=== PATIENT | female | born 1975 | race Caucasian/White ===

== ENCOUNTER 2021-01-01 21:31 | Emergency (ER) | payer BC, SELFPAY ==
[2021-01-01 21:45] VITALS: BMI 34.7
[2021-01-01 21:46] VITALS: BP 179/99; PULSE 82; RESP 22; TEMP 36.9; O2SAT 96; BMI 34.7
[2021-01-01 21:48] LABS: Microscopic, Urine URINE MICROSCOPIC (MICROSCOPIC)
--- NOTE | 2021-01-01 21:53 | CT_ITS ---
PROCEDURE INFORMATION: Exam: CT Abdomen And Pelvis With Contrast Exam date and time: 01/01/2021 9:53 PM Age: 45 years old Clinical indication: Abdominal pain; Localized; Left lower quadrant (llq); Prior surgery; Surgery date: 6+ months; Surgery type: Gallbladder; Patient HX: Llq pain in last few hours; Additional info: Left flank and llq pain TECHNIQUE: Imaging protocol: Computed tomography of the abdomen and pelvis with contrast. Radiation optimization: All CT scans at this facility use at least one of these dose optimization techniques: automated exposure control; mA and/or kV adjustment per patient size (includes targeted exams where dose is matched to clinical indication); or iterative reconstruction. Contrast material: ISOVUE; Contrast volume: 75 ml; Contrast route: IV; COMPARISON: No relevant prior studies available. FINDINGS: Liver: Normal. No mass. Gallbladder and bile ducts: There has been prior cholecystectomy. Pancreas: Normal. No ductal dilation. Spleen: Normal. No splenomegaly. Adrenal glands: Normal. No mass. Kidneys and ureters: There is a 4 mm calculus at the intramural portion of the left ureterovesical junction with associated proximal grade 3 hydronephrosis most consistent with left-sided obstructive uropathy. Stomach and bowel: Unremarkable. No obstruction. No mucosal thickening. Appendix: No evidence of appendicitis. Intraperitoneal space: Unremarkable. No free air. No significant fluid collection. Vasculature: Unremarkable. No abdominal aortic aneurysm. Lymph nodes: Unremarkable. No enlarged lymph nodes. Urinary bladder: Unremarkable as visualized. Reproductive: Unremarkable as visualized. Bones/joints: Unremarkable. No acute fracture. Soft tissues: Unremarkable. IMPRESSION: There is a 4 mm calculus at the intramural portion of the left ureterovesical junction with associated proximal grade 3 hydronephrosis most consistent with left-sided obstructive uropathy.
[2021-01-01 22:04] LABS: Appearance,Urine CLOUDY (Clear); Bilirubin,Urine Negative (Negative); Blood, Urine 2+ (Negative); Color,Urine YELLOW (Yellow); Glucose,Urine (UA) Negative (Negative); Ketones,Urine Negative (Negative); Leukocyte Esterase,Urine TRACE (Negative); Nitrate,Urine Negative (Negative); PH,Urine 5.5 (5.0-8.5); Protein,Urine Negative (Negative); Specific Gravity, Urine 1.025 (1.005-1.030); Urobilinogen,Urine 0.2 EU/dl (0.2)
[2021-01-01 22:06] LABS: Urine Pregnancy, HCG Qual. Negative (Negative)
[2021-01-01 22:08] LABS: Basophils # 0.1 K/mm3 (0-0.2); Basophils % 0.9 % (0.1-2.0); Eosinophils # 0.3 K/mm3 (0.0-0.4); Eosinophils % 3.3 % (0.1-12.0); Hematocrit 44.6 % (37.0-47.0); Lymphocytes # 2.4 K/mm3 (0.7-4.5); Lymphocytes % 25.5 % (10-50); Mean Corpuscular HGB Conc 33.7 g/dL (31.8-35.4); Mean Corpuscular Hemoglobin 29.5 pg (27.0-31.2); Mean Corpuscular Volume 87.7 fl (81-99); Mean Platelet Volume 7.5 fl (7.4-10.4); Monocytes # 0.5 K/mm3 (0.1-1.0); Monocytes % 5.2 % (1.7-9.3); Neutrophils # 6.1 K/mm3 (1.8-7.8); Neutrophils % 65.1 % (37.0-80.0); Platelet Count 216 K/mm3 (142-424); Red Blood Count 5.08 M/mm3 (4.20-5.40); Red Cell Distribution Width 12.6 % (11.5-17.5); White Blood Count 9.4 K/mm3 (4.8-10.8)
[2021-01-01 22:09] LABS: Alanine Aminotransferase 18 U/L (12-78); Albumin Level 4.3 g/dl (3.5-5.0); Albumin/Globulin Ratio 1.5 (1.1-1.8); Alkaline Phosphatase 82 U/L (38-126); Anion Gap 8.7 mEq/L (5-15); Aspartate Amino Transferase 26 U/L (14-36); Bilirubin,Total 0.5 mg/dl (0.2-1.3); Blood Urea Nitrogen 12 mg/dl (7-17); Calcium 9.1 mg/dl (8.4-10.2); Carbon Dioxide 24 mmol/L (22.0-30.0); Chloride 106 mmol/L (98-107); Creatinine Clearance Estimated 88 mL/min (50-200); Estimated Glomerular Filt Rate 54 ml/min (>60); GFR (African American) 65 ML/MIN (>60); Globulin 2.8 g/dL (1.3-3.2); Glucose 108 mg/dl (74-100); Lipase 163 U/L (23-300); Potassium 3.7 mmoL/L (3.5-5.1); Sodium 135 mmol/L (136-145); Total Protein,Serum 7.1 g/dl (6.3-8.2)
[2021-01-01 22:15] LABS: Bacteria,Urine 2+ /lpf
[2021-01-01 22:46] VITALS: BP 148/98; PULSE 78; RESP 16; O2SAT 96
[2021-01-01 23:00] VITALS: BP 145/91; PULSE 76; RESP 16; O2SAT 96
--- NOTE | 2021-01-01 23:52 | [facility].EDABDPAI ---
ED Disposition Clinical Impression: Renal lithiasis Disposition: Home, Self-Care Condition on Discharge: Good Instructions: DI for Acute Abdominal Pain Additional Instructions: Follow-up with urology as needed and return to the ED for any new or worsening symptoms including inability to urinate or fever. Prescriptions: Tamsulosin HCl [Flomax 0.4mg capsule] 0.4 mg PO HS 7 Days #7 cap Prescription Printed Referrals: Ace Nettles [Primary Care Provider] - Time of Disposition: 00:00 - Critical Care Critical Care Time: No Attestation: On 01/01/21, the high probability of a clinically significant, sudden or life threatening deterioration of the following system(s) required my full and direct attention, intervention and personal management. The time I documented below is in addition to time spent performing reported procedures but includes the following listed in this critical care notation. Medical Decision Making - Medical Records Medical records reviewed: Yes: I reviewed the patient's medical records. - Brandon Inquiry Pt receiving controlled substance: No Vital Signs: 01/01/21 21:46 01/01/21 22:46 01/01/21 23:00 Temperature 98.4 F Temperature Source Oral Pulse Rate 78 76 Pulse Rate [Right] 82 Respiratory Rate 22 16 16 Blood Pressure 148/98 H 145/91 H Blood Pressure [Right Arm] 179/99 H Blood Pressure Mean 112 109 Blood Pressure Mean [Right Arm] 125 Blood Pressure Source [Right Arm] Automatic Cuff Blood Pressure Position [Right Arm] Sitting 02 Sat by Pulse Oximetry 96 96 96 Oxygen Delivery Method Room Air Room Air Room Air - Lab Data Lab Results 01/01/21 21:40: Urine Color Yellow, Urine Appearance Cloudy, Urine pH 5.5, Ur Specific [place] 1.025, Urine Protein Negative, Urine Glucose (UA) Negative, Urine Ketones Negative, Urine Blood 2+, Urine Nitrate Negative, Urine Bilirubin Negative, Urine Urobilinogen 0.2, Ur Leukocyte Esterase Trace, Urine RBC 10-20, Urine WBC 10-20, Ur Squamous Epith Cells 10-20, Urine Bacteria 2+ 01/01/21 21:40: Urine HCG, Qual Negative 01/01/21 21:45: WBC 9.4, RBC 5.08, Hgb 15.0, Hct 44.6, MCV 87.7, MCH 29.5, MCHC 33.7, RDW 12.6, Plt Count 216, MPV 7.5, Neut % (Auto) 65.1, Lymph % (Auto) 25.5, [place] % (Auto) 5.2, Eos % (Auto) 3.3, Baso % (Auto) 0.9, Neut # (Auto) 6.1, Lymph # (Auto) 2.4, [place] # (Auto) 0.5, Eos # (Auto) 0.3, Baso # (Auto) 0.1 01/01/21 21:45: Sodium 135 L, Potassium 3.7, Chloride 106, Carbon Dioxide 24, Anion Gap 8.7, BUN 12, Creatinine 1.10 H, Estimated Creat Clear 88, Estimated GFR 54 L, Est GFR ( Amer) 65, Glucose 108 H, Calcium 9.1, Total Bilirubin 0.5, AST 26, ALT 18, Alkaline Phosphatase 82, Total Protein 7.1, Albumin 4.3, Globulin 2.8, Albumin/Globulin Ratio 1.5, Lipase 163 Result diagrams: 01/01/21 21:45 01/01/21 21:45 Orders (Tests/Meds): ED MEDICATIONS Discontinued Medications Generic Name Dose Route Start Last Admin Trade Name Freq PRN Reason Stop Dose Admin Belladonna Alkaloids 60 ml 01/01/21 21:55 01/01/21 22:08 Gi Cocktail 60ml Udc PO 01/01/21 21:56 60 ml ONCE ONE Administration Iopamidol 75 ml 01/01/21 22:37 01/01/21 22:38 Iopamidol-370 (76%);100ml Bottle IV 01/01/21 22:38 75 ml ONCE ONE Administration Ketorolac Tromethamine 15 mg 01/01/21 21:54 01/01/21 22:08 Ketorolac 30mg/Ml Vial IV 01/01/21 21:55 15 mg ONCE ONE Administration Morphine Sulfate 4 mg 01/01/21 21:54 01/01/21 22:08 Morphine 4mg/Ml Syringe IV 01/01/21 21:55 4 mg ONCE ONE Administration Ondansetron HCl 4 mg 01/01/21 22:12 01/01/21 22:12 Ondansetron 4mg/2ml Vial IV 01/01/21 22:13 4 mg ONCE ONE Administration Sodium Chloride 10 ml 01/01/21 22:37 01/01/21 22:38 Sodium Chloride 0.9% 10ml Syr (Rad Only) IV 01/01/21 22:38 10 ml ONCE ONE Administration ORDERS Category Date Time Status Urine Culture Stat Micro 01/01/21 21:40 Received - CT Data CT Scan: Abdomen
[2021-01-02 00:02] VITALS: BP 141/82; PULSE 72; RESP 16; TEMP 36.9; O2SAT 96
== END 2021-01-02 00:07 | disposition home or self-care (01) ==
PROVIDERS: Emergency Provider Student in an Organized Health Care Education/Training Program; PCP Family Medicine
DX: N20.0 Calculus of kidney (principal)
CPT/HCPCS: 74177; 80053; 81001; 81025; 83690; 85025; 87086; 96374; 96375; 99283; J2405; Q9967

== ENCOUNTER 2022-01-05 22:28 | Emergency (ER) | payer BC, SELFPAY ==
[2022-01-05 22:29] VITALS: BP 188/100; PULSE 96; RESP 18; TEMP 36.9; O2SAT 97; BMI 34.3
--- NOTE | 2022-01-05 22:42 | XR_ITS ---
PROCEDURE INFORMATION: Exam: XR Chest Exam date and time: 01/05/2022 11:15 PM Age: 46 years old Clinical indication: Injury or trauma; Fall; Blunt trauma (contusions or hematomas) TECHNIQUE: Imaging protocol: XR of the chest. Views: 2 views. COMPARISON: CT CERVICAL SPINE WO CON 01/05/2022 11:07 PM FINDINGS: Lungs: Unremarkable. No consolidation. Pleural spaces: Unremarkable. No pleural effusion. No pneumothorax. Heart/Mediastinum: Unremarkable. No cardiomegaly. Bones/joints: Unremarkable. IMPRESSION: No acute findings.
--- NOTE | 2022-01-05 22:42 | CT_ITS ---
PROCEDURE INFORMATION: Exam: CT Head Without Contrast Exam date and time: 01/05/2022 11:05 PM Age: 46 years old Clinical indication: Injury or trauma; Fall; Blunt trauma (contusions or hematomas); Without loss of consciousness; Additional info: Fall hit back of head laceration TECHNIQUE: Imaging protocol: Computed tomography of the head without contrast. Radiation optimization: All CT scans at this facility use at least one of these dose optimization techniques: automated exposure control; mA and/or kV adjustment per patient size (includes targeted exams where dose is matched to clinical indication); or iterative reconstruction. COMPARISON: No relevant prior studies available. FINDINGS: Brain: There is no evidence of infarct, strong-white matter differentiation is preserved. There is no hemorrhage or extra-axial collection. There is no mass. There is no hydrocephalus. Cerebral ventricles: No ventriculomegaly. Paranasal sinuses: There is mild mucosal thickening in the sinuses. No air-fluid levels. Mastoid air cells: Visualized mastoid air cells are well aerated. Bones/joints: Unremarkable. No acute fracture. Soft tissues: There is right posterior parietal extracranial scalp soft tissue swelling near the vertex. IMPRESSION: No intracranial injury or lesion
--- NOTE | 2022-01-05 22:42 | XR_ITS ---
PROCEDURE INFORMATION: Exam: XR Sacrum and Coccyx, 2 or More Views Exam date and time: 01/05/2022 11:10 PM Age: 46 years old Clinical indication: Injury or trauma; Fall; Blunt trauma (contusions or hematomas); Additional info: Fall landed on sacrum on gravel driveway. Also has laceration on back of head TECHNIQUE: Imaging protocol: XR of the sacrum and coccyx, 2 or more views. COMPARISON: CR XR PELVIS 1-2V 01/05/2022 11:08 PM FINDINGS: Bones/joints: No evidence of fracture of the sacrum or coccyx. Sacrococcygeal alignment is normal. Soft tissues: Normal. IMPRESSION: No fracture
--- NOTE | 2022-01-05 22:42 | CT_ITS ---
PROCEDURE INFORMATION: Exam: CT Cervical Spine Without Contrast Exam date and time: 01/05/2022 11:07 PM Age: 46 years old Clinical indication: Injury or trauma; Fall; Blunt trauma; Additional info: Fall hit back of head laceration TECHNIQUE: Imaging protocol: Computed tomography images of the cervical spine without contrast. Radiation optimization: All CT scans at this facility use at least one of these dose optimization techniques: automated exposure control; mA and/or kV adjustment per patient size (includes targeted exams where dose is matched to clinical indication); or iterative reconstruction. COMPARISON: CT HEAD/BRAIN WO CON 01/05/2022 11:05 PM FINDINGS: Bones/joints: Vertebral bodies maintain their height and alignment. There is no fracture of the posterior elements. Discs/Spinal canal/Neural foramina: There is spondylosis and disc space narrowing at C5-C6. There is no central spinal stenosis in the cervical spine. There is right foraminal stenosis at C3-C4. Lungs: Lung apices are normal. Soft tissues: Unremarkable. IMPRESSION: No fracture of the cervical spine
--- NOTE | 2022-01-05 22:42 | XR_ITS ---
PROCEDURE INFORMATION: Exam: XR Pelvis Exam date and time: 01/05/2022 11:08 PM Age: 46 years old Clinical indication: Injury or trauma; Fall; Blunt trauma (contusions or hematomas); Bilateral; Pelvic region and sacrum and coccyx TECHNIQUE: Imaging protocol: XR pelvis. Views: 1 or 2 view. COMPARISON: CT ABDOMEN PELVIS W CON 01/01/2021 10:23 PM FINDINGS: Bones/joints: There is no fracture. Soft tissues: Unremarkable. IMPRESSION: No fracture
--- NOTE | 2022-01-05 22:47 | [facility].EDFALL ---
ED Disposition Clinical Impression: Head trauma Qualifiers: Encounter type: initial encounter Qualified Code(s): S09.90XA - Unspecified injury of head, initial encounter Contusion of sacrum Qualifiers: Encounter type: initial encounter Qualified Code(s): S30.0XXA - Contusion of lower back and pelvis, initial encounter Laceration of scalp Qualifiers: Encounter type: initial encounter Qualified Code(s): S01.01XA - Laceration without foreign body of scalp, initial encounter Concussion without loss of consciousness Qualifiers: Encounter type: initial encounter Qualified Code(s): S06.0X0A - Concussion without loss of consciousness, initial encounter Disposition: Home, Self-Care Condition on Discharge: Good Instructions: DI for Concussion Additional Instructions: neil out in 8-10 days Referrals: Provider,Referral, MD [Primary Care Provider] - - Critical Care Critical Care Time: No Attestation: On 01/05/22, the high probability of a clinically significant, sudden or life threatening deterioration of the following system(s) required my full and direct attention, intervention and personal management. The time I documented below is in addition to time spent performing reported procedures but includes the following listed in this critical care notation. Medical Decision Making - Medical Records Medical records reviewed: Yes: I reviewed the patient's medical records. - Brandon Inquiry Pt receiving controlled substance: No Vital Signs: 01/05/22 22:29 Temperature 98.5 F Temperature Source Oral Pulse Rate [Right] 96 H Respiratory Rate 18 Blood Pressure [Right Arm] 188/100 H Blood Pressure Mean [Right Arm] 129 02 Sat by Pulse Oximetry 97 - Lab Data Lab results reviewed: Yes: I reviewed the patient's lab results. Lab Results 01/05/22 22:48: Urine HCG, Qual Negative Orders (Tests/Meds): ED MEDICATIONS Discontinued Medications Generic Name Dose Route Start Last Admin Trade Name Freq PRN Reason Stop Dose Admin Acetaminophen 1,000 mg 01/05/22 22:56 01/05/22 22:59 Acetaminophen 500mg Tab PO 01/05/22 22:57 1,000 mg ONCE ONE Administration Ibuprofen 600 mg 01/05/22 22:56 01/05/22 22:59 Ibuprofen 600 Mg Tablet PO 01/05/22 22:57 600 mg ONCE ONE Administration Tetanus/Diphtheria Toxoids 0.5 ml 01/05/22 23:55 01/05/22 23:57 Tetanus-Diphth Toxoid, Adult 0.5ml Syr IM 01/05/22 23:56 0.5 ml .ONCE ONE Administration - Radiology Data #1 Image(s): Chest, Pelvis Image Reviewed: Yes I have reviewed radiologist's interpretation Preliminary Findings: No Fracture Seen - CT Data CT Scan: Head, C-Spine Time Received: 00:[address] Reviewed: Yes: I have viewed the radiologist's interpretation Preliminary Findings: No Fracture Seen Medical Decision Narrative: has acute head injury with lac with stable exam and xrays Fall HPI - General Chief Complaint: Fall Stated Complaint: AO 01/05 fell head Lad Time Seen by Provider: 01/05/22 22:47 Mode of Arrival: Ambulatory Source of Information: Patient, Medical Record Limitations: No Limitations Description of Symptoms (Recalled from ER Triage Doc. by RN): pt states was waslking down steps from front porch and losted footings and hit head. pt has lac to back head. pt c/o neck and tailbone pain - History of Present Illness HPI Narrative: missed step and fell with head injury and scalp lac and pelvic trauma - no loc MD complaint: fall Onset (ago): hour(s) Fall from: down stairs (#) Fall witnessed: yes, by family Place fall occurred: home Loss of consciousness: none Prolonged down time: no Context: tripped/slipped Location of injury: head, neck, pelvis Severity: moderate Associated symptoms (after fall): denies - Related Data Previous Rx's Medication Instructions Recorded Tamsulosin HCl [Flomax 0.4mg 0.4 mg PO HS 7 Days #7 cap 01/01/21 capsule] Allergies Allergy/AdvReac Type Severity Reac
[2022-01-05 22:55] LABS: Urine Pregnancy, HCG Qual. Negative (Negative)
[2022-01-06 00:13] VITALS: BP 159/78; PULSE 91; RESP 18; TEMP 36.9; O2SAT 97
== END 2022-01-06 00:18 | disposition home or self-care (01) ==
PROVIDERS: Emergency Provider Emergency Medicine
DX: S09.90XA Unspecified injury of head, initial encounter (principal); W10.9XXA Fall (on) (from) unspecified stairs and steps, initial encounter; S30.0XXA Contusion of lower back and pelvis, initial encounter; S01.01XA Laceration without foreign body of scalp, initial encounter; Z23 Encounter for immunization
CPT/HCPCS: 12031; 70450; 71046; 72125; 72170; 72220; 81025; 90471; 90714; 99284